=== PATIENT | male | born 1975 | race Asian ===

== ENCOUNTER 2020-12-25 11:59 | Emergency (ER) | payer OTHER ==
[~2020-12-25] VITALS: Ht 198.1 cm; Wt 92.5 kg
[2020-12-25 12:03] VITALS: BP 159/89; TEMP 98.3
[2020-12-25 12:48] LABS: PLATELET COUNT 277 K/uL (142-355)
[2020-12-25 12:56] LABS: POTASSIUM 5.1 mmol/L (3.6-5.2)
== END 2020-12-25 14:24 | disposition home or self-care (01) ==
LOC: EDBD 11:59 → ED 11:59
PROVIDERS: Family Medicine
DX: U07.1 COVID-19 (principal); J32.8 Other chronic sinusitis
CPT/HCPCS: 80053; 85027; 87635; 99284; U0003